=== PATIENT | male | born 1970 | race Caucasian/White ===

== ENCOUNTER 2016-05-24 11:17 | Emergency (ER) | payer BC ==
[~2016-05-24] VITALS: Ht 177.8 cm; Wt 105.4 kg
[2016-05-24] MEDS ORDERED: FLEXERIL10 MG PO (14:07)
[2016-05-24] MEDS ORDERED: LORTAB 5-325 M1 EACH PO (14:07)
[2016-05-24] MEDS ORDERED: PREDNISONE10 MG PO (14:07)
[2016-05-24 14:51] VITALS: BP 129/74
== END 2016-05-24 14:53 | disposition home or self-care (01) ==
LOC: EME 11:17
DX: M54.41 Lumbago with sciatica, right side (principal); M46.1 Sacroiliitis, not elsewhere classified; X50.9XXA Other and unspecified overexertion or strenuous movements or postures, initial encounter; I10 Essential (primary) hypertension; Z87.891 Personal history of nicotine dependence
CPT/HCPCS: 99281; 99284; J2405; J3010; J7030; J7512